=== PATIENT | female | born 1985 | race Two or more races ===

== ENCOUNTER 2024-09-01 00:56 | Emergency (ER) | payer MEDICAID, OTHER ==
[~2024-09-01] VITALS: Ht 154.9 cm; Wt 77.0 kg
--- NOTE | 2024-09-01 01:53 | DVH ---
INDICATION: Left-sided pelvic pain TECHNIQUE: Multiple real-time grayscale transabdominal sonographic images along with color and duplex Doppler of the uterus and ovaries were obtained. COMPARISON: None FINDINGS: Uterus measures approximately 11.3 x 4.6 x 6.3 cm and demonstrates no abnormality. Endometrial appear s unremarkable measuring 8 mm. Right ovary measures approximately 3.9 x 2.4 x 3.5 cm and appears unremarkable with normal Doppler co qi flow. Left ovary measures approximately 3.3 x 2.3 x 2.1 cm and appears unremarkable with normal Doppler col or flow. No evidence of pelvic mass or fluid collection. IMPRESSION: No abnormality demonstrated.
[2024-09-01] MEDS: HYDROcodone-ACET 5/325MG TAB PO ONE (01:54)
[2024-09-01] MEDS ORDERED: IBUP-1455 PO (01:55)
[2024-09-01] MEDS ORDERED: TRAM50TA2 PO (01:55)
--- NOTE | 2024-09-01 01:57 | ED.PDOC ---
General HPI Comments This patient is a pleasant but morbidly obese 38-year-old female who arrives to the ED today for evaluation of left lower pelvic pain concerns for the past two days. Patient has a history of ovarian cysts as well as tubal ligation. Patient states that she gets bilateral ovarian pain prior to her menses and throughout, but states that this pain has come on earlier than usual and has been relatively unrelenting. Patient denies any traumatic events. Patient denies any definitive urinary discomfort. Vital signs were stable on arrival. Chief Complaint: Pelvic Pain Time Seen by MD: 01:05 Primary Care Provider: MARISOL Reviewed notes: Nurses Notes Information Source: Patient Mode of Arrival: Ambulatory Severity: Moderate Timing: Days Duration: Since onset Prehospital treatment: Pain Meds Onset: Spontaneous Symptoms: None History of: Other (Ovarian cysts) Location: Abdomen associated signs and symptoms: Other ( left-sided pelvic pain) Past Medical History PAST MEDICAL HISTORY: Denies Past Medical History (Other): history of ovarian cysts Surgical History: Denies all surgeries COIL FINISHER History: No Pertinent COIL FINISHER History Family History Family History: Reviewed,noncontributory to illness, No family hx of Cancer, No family hx of DM, No family hx of Heart mark, No family hx of HTN, No family hx ofKidney mark, No family hx of Liver mark, No family hx of Lung mark, No family hx of Stroke Social History Smoker: Non-Smoker Alcohol: Denies ETOH Use Drugs: Denies Drug Use Lives In: Home Constitutional: denies: chills, diaphoresis, fatigue, fever, malaise, sweats, weakness, others EENTM: denies: blurred vision, double vision, ear bleeding, ear discharge, ear drainage, ear pain, ear ringing, eye pain, eye redness, hearing loss, mouth pain, mouth swelling, nasal discharge, nose bleeding, nose congestion, nose pain, photophobia, tearing, throat pain, throat swelling, voice changes, others Respiratory: denies: cough, hemoptysis, orthopnea, SOB at rest, shortness of breath, SOB with excertion, stridor, wheezing, others Cardiovascular: denies: chest pain, dizzy spells, diaphoresis, Dyspnea on exertion, edema, irregular heart beat, left arm pain, lightheadedness, palpitations, PND, syncope, others Gastrointestinal: reports: abdominal pain, others ( left-sided pelvic pain); denies: abdomen distended, blood streaked bowels, constipated, diarrhea, dysphagia, difficulty swallowing, hematemesis, melena, nausea, poor appetite, poor fluid intake, rectal bleeding, rectal pain, vomiting Genitourinary: denies: abnormal vagina bleeding, burning, dyspareunia, dysuria, flank pain, frequency, hematuria, incontinence, pain, , vagina discharge, urgency, others Neurological: denies: dizziness, fainting, headache, left sided numbness, left sided weakness, numbness, paresthesia, pre-existing deficit, right sided numbness, right sided weakness, seizure, speech problems, tingling, tremors, weakness, others Musculoskeletal: denies: back pain, gout, joint pain, joint swelling, muscle pain, muscle stiffness, neck pain, others Integumetry: denies: bruises, change in color, change in hair/nails, dryness, laceration, lesions, lumps, rash, wounds, others Allergic/Immunocompromised: denies: Difficulty Healing, Frequent Infections, Hives, Itching, others Hematologic/Lymphatic: denies: anemia, blood clots, easy bleeding, easy bruising, swollen glands, others Endocrine: denies: excessive hunger, excessive sweating, excessive thirst, excessive urination, flushing, intolerance to cold, intolerance to heat, unexplained weight gain, unexplained weight loss, others Psychiatric: denies: anxiety, bipolar disorder, depression, hopeless, panic disorder, schizophrenia, sleepless, suicidal, others Physical Exam General Appearance: Moderate Distress ( patient was brought in distress at time of evaluation.), Normal HEENT: Normal ENT Inspection, Pharynx Normal, TMs Normal Neck: Full Range of Motion, Non-Tender, Normal, Normal Inspection Respiratory: Chest Non-Tender, Lungs Clear, No Accessory Muscle Use, No Respiratory Distress, Normal Breath Sounds Cardiovascular: No Edema, No JVD, No Murmur, No Gallop, Normal Peripheral Pulses, Regular Rate/Rhythm Breast Exam: Deferred Gastrointestinal: No Organomegaly, Non Tender, No Pulsatile Mass, Normal Bowel Sounds, Soft Genitalia: Deferred Pelvic: Other ( Diffuse left-sided pelvic tenderness to palpation throughout. No pulsatile masses. Difficult to assess due to body habitus.) Rectal: Deferred Extremities: No calf tenderness, Normal capillary refill, Normal inspection, Normal range of motion, Non-tender, No pedal edema Neurologic: Alert, patient navigator II-XII nml as Tested, No Motor Deficits, Normal Affect, Normal Mood, No Sensory Deficits Cerebellar Function: Normal Reflexes: Normal Skin: Dry, Normal Color, Warm Lymphatic: No Adenopathy Was a procedure done? Was a procedure done?: No Differential Diagnosis Kidney stone (Female): N/A Urinary Problem (Female): Other ( UTI, ovarian cyst, fibroids, musculoskeletal pain) X-Ray, Labs, Meds, VS Vital Signs Date Time Temp Pulse Resp B/P (MAP) Pulse Ox O2 Delivery O2 Flow Rate FiO2 09/01/24 01:20 98.3 82 20 136/72 (93) 95 X-Ray, Labs, Meds, VS Comment Studies were pending at time of this note. Patient care will be transferred to Dr. Rico for evaluation of imaging and laboratories studies when returned. Once reviewed, she will respond accordingly. Time of 1ST Reevaluation: 01:53 Reevaluation 1ST: Improved Consultation: PCP, dial maker Patient Education/Counseling: Diagnosis, Treatment Family Education/Counseling: Diagnosis, Treatment Departure 1 Departure Time of Disposition: 01:54 Impression: Primary Impression: Pelvic pain Disposition: HOME / SELF CARE / HOMELESS Condition: Stable Additional Instructions: Advised patient utilize medication as needed for symptomatic relief in additionally, patient should follow up with user experience analyst for conversations related to today's visit and continued evaluation. e-Prescriptions Tramadol Hcl (Tramadol Hcl) 50 Mg Tab 50 MG PO Q8HP PRN, #10 TAB Prov: MOISE DE LA FUENTE PAC 09/01/24 Ibuprofen Micronized (Ibuprofen) 800 Mg Tab 800 MG PO Q8HP PRN, #20 TAB Prov: MOISE DE LA FUENTE PAC 09/01/24 Discharged With: Self, Friend Critical Care Note Critical Care Time?: No Stability Stability form required: No Heart Score Heart Score: Heart Score Response (Comments) Value History N/A 0 EKG N/A 0 Age N/A 0 Risk Factors N/A 0 Troponin N/A 0 Total 0 MOISE DE LA FUENTE PAC Sep 01, 2024 01:57
[2024-09-01 03:00] VITALS: PULSE 83; RESP 18; O2SAT 96
[2024-09-01] MEDS: KETOROLAC TROMETH 60MG/2ML VIAL IM ONE (03:07)
[2024-09-01] MEDS: ACETAMINOPHEN/CODEINE#3 (300/30mg) TAB PO ONE (03:07)
[2024-09-01 03:10] LABS: Urine Bacteria None Seen /hpf (None Seen)
[2024-09-01 03:32] LABS: Urine Blood Negative /uL (Negative); Urine Clarity Clear (Clear); Urine Color Colorless (Yellow); Urine Protein, UAD Negative (Negative); Urine Specific Gravity 1.009 (1.001-1.035); Urine Squamous Epithelial Cell FEW /hpf (<5); Urine Urobilinogen Normal (Negative); Urine WBC 15 /HPF (0-5); Urine pH 6.5 (5.0-9.0)
[2024-09-01] MEDS ORDERED: CEPH250C PO (04:30)
--- NOTE | 2024-09-01 04:32 | PRN ---
Misceleneous Note Note Note Patient previously seen, treated and evaluated by Adán Spann for pelvic pain. Prior to discharge patient reported lump of the labia. Patient was examined with a prize jacker present. Exam reveals swollen, , tender, mildly erythematous left external labia. No palpable abscess, no induration, no discharge. We will treat for cellulitis. MICHOACANO SILVA MD Sep 01, 2024 04:32
[2024-09-01 04:44] VITALS: BP 136/72; PULSE 82; RESP 20; TEMP 98.3; O2SAT 95
== END 2024-09-01 04:53 | disposition home or self-care (01) ==
LOC: ER 00:56
DX: R10.2 Pelvic and perineal pain (principal)
CPT/HCPCS: 76856; 81001; 96372; 99285; J1885